=== PATIENT | male | born 1950 | race Caucasian/White ===

== ENCOUNTER → 2021-07-09 | Outpatient (CLI) | payer BC, MEDICARE ==
[~2021-07-09] MED LIST: OMNICEF 300 MG300 MG PO; ZITHROMAX250 MG PO; ZOFRAN4 MG PO
== END ==
LOC: KOH-I 13:57
DX: N50.819 Testicular pain, unspecified (principal); R23.4 Changes in skin texture
CPT/HCPCS: 76870

== ENCOUNTER → 2022-02-07 | Outpatient (CLI) | payer MEDICARE, BC | LOC: MRI 15:00 | DX: G44.52 New daily persistent headache (NDPH) (principal) | CPT/HCPCS: 70553; A9577 ==

== ENCOUNTER → 2022-05-30 | Outpatient (CLI) | payer MEDICARE, BC | LOC: EXRD 09:45 | DX: Z13.6 Encounter for screening for cardiovascular disorders (principal); M81.0 Age-related osteoporosis without current pathological fracture; I71.4 Abdominal aortic aneurysm, without rupture | CPT/HCPCS: 76706; 77080 ==